=== PATIENT | male | born 1960 | race Caucasian/White ===

== ENCOUNTER 2016-09-10 04:44 | Emergency (ER) | payer SELFPAY ==
[2016-09-10] MEDS ORDERED: Ondansetron 4 MG/2 ML SDV IVPUSH ONE (04:54)
[2016-09-10] MEDS ORDERED: Sodium Chloride 0.9% 1,000 ML IV ONE (04:55)
[2016-09-10] MEDS ORDERED: Ketorolac 30 MG/ML SDV IVPUSH ONE (04:55)
[2016-09-10 05:29] LABS: CHLORIDE,CL 108 mmol/L (98-110); SODIUM,NA 140 mmol/L (136-146)
--- NOTE | 2016-09-10 06:40 | EDM.PDOC ---
ED HPI GENERAL MEDICAL PROBLEM - General Chief Complaint: Abdominal Pain Stated Complaint: STOMACH PAINS Time Seen by Provider: 09/10/16 06:36 - History of Present Illness INITIAL COMMENTS - FREE TEXT/NARRATIVE: HISTORY AND PHYSICAL: History of present illness: Patient's a 56-year-old male presents for an acute right flank pain this started approximately 2 hours prior to arrival with associated nausea he had no vomiting he denies fever chills denies trauma denies history of prior urolithiasis Review of systems: As per history of present illness and below otherwise all systems reviewed and negative. Past medical history: As per history of present illness and as reviewed below otherwise noncontributory. Surgical history: As per history of present illness and as reviewed below otherwise noncontributory. Social history: No reported history of drug or alcohol abuse. Family history: As per history of present illness and as reviewed below otherwise noncontributory. Physical exam: HEENT: Atraumatic, normocephalic, pupils reactive, negative for conjunctival pallor or scleral icterus, mucous membranes moist, throat clear, neck supple, nontender, trachea midline. Lungs: Clear to auscultation, breath sounds equal bilaterally, chest nontender. Heart: S1S2, regular, negative for clicks, rubs, or JVD. Abdomen: Soft, nondistended, nontender. Negative for masses or hepatosplenomegaly. Right-sided costovertebral tenderness. Pelvis: Stable nontender. Genitourinary: Deferred. Rectal: Deferred. Extremities: Atraumatic, negative for cords or calf pain. Neurovascular unremarkable. Neuro: Awake, alert, oriented. Cranial nerves II through XII unremarkable. Cerebellum unremarkable. Motor and sensory unremarkable throughout. Exam nonfocal. Diagnostics: CBC CMP UA CT abdomen and pelvis Therapeutics: Normal saline 1 L bolus Toradol 15 mg IV Zofran 4 mg IV Impression: #1 acute right flank pain Definitive disposition and diagnosis as appropriate pending reevaluation and review of above. Right Lower Abdominal Pain Score (Numeric/FACES): 9 - Related Data Allergies Allergy/AdvReac Type Severity Reaction Status Date / Time No Known Allergies Allergy Verified 09/10/16 04:47 Home Meds: Home Meds . [No Known Home Meds] 09/10/16 [History] Past Medical History HEENT History: Reports: None Cardiovascular History: Reports: None Respiratory History: Reports: None Genitourinary History: Reports: None Musculoskeletal History: Reports: None Neurological History: Reports: None Psychiatric History: Reports: None Dermatologic History: Reports: None - Infectious Disease History Infectious Disease History: Reports: None - Past Surgical History HEENT Surgical History: Reports: None Cardiovascular Surgical History: Reports: None Social & Family History - Tobacco Use Smoking Status *Q: Never Smoker Second Hand Smoke Exposure: No ED ROS GENERAL - Review of Systems Review Of Systems: ROS reveals no pertinent complaints other than HPI. ED EXAM, GENERAL - Physical Exam Exam: See Below (See dictation) Course - Vital Signs Text/Narrative:: Patient is near complete resolution of his discomfort and I discussed with him that likely probability of a recently passed stone patient understands and agrees to followup accordingly as discussed Last Recorded V/S: Last Vital Signs Temp 36.3 C 09/10/16 04:48 Pulse 50 L 09/10/16 04:48 Resp 16 09/10/16 04:48 BP 169/89 H 09/10/16 04:48 Pulse Ox 98 09/10/16 04:48 - Orders/Labs/Meds Orders: Active Orders 24 hr Category Date Time Status Abdomen Pelvis wo Cont [CT] Stat Exams 09/10/16 04:57 Taken URINALYSIS W/MICROSCOPIC [UA W/MICROSCOPIC] [URIN] Stat Lab 09/10/16 06:20 Results Labs: Laboratory Tests 09/10/16 09/10/16 09/10/16 Range/Units 04:51 04:51 06:20 WBC 8.80 (4.0-11.0) K/uL RBC 4.56 (4.50-5.90) M/uL Hgb 14.7 (13.0-17.0) g/dL Hct 42.0 (38.0-50.0) % MCV 92.1 (80.0-98.0) fL MCH 32.2 H (27.0-32.0) pg MCHC 35.0 (31.0-37.0) g/dL RDW Std Deviation 42.6 (28.0-62.0) fl RDW Coeff of Jennifer 13 (11.0-15.0) % Plt Count 207 (150-400) K/uL MPV 12.00 (7.40-12.00) fL Neut % (Auto) 64.7 (48.0-80.0) % Lymph % (Auto) 25.2 (16.0-40.0) % Love % (Auto) 8.4 (0.0-15.0) % Eos % (Auto) 1.5 (0.0-7.0) % Baso % (Auto) 0.2 (0.0-1.5) % Neut # (Auto) 5.7 (1.4-5.7) K/uL Lymph # (Auto) 2.2 (0.6-2.4) K/uL Love # (Auto) 0.7 (0.0-0.8) K/uL Eos # (Auto) 0.1 (0.0-0.7) K/uL Baso # (Auto) 0.0 (0.0-0.1) K/uL Nucleated RBC % 0.0 /100WBC Nucleated RBCs # 0 K/uL Sodium 140 (136-146) mmol/L Potassium 4.1 (3.5-5.1) mmol/L Chloride 108 (98-110) mmol/L Carbon Dioxide 23 (21-31) mmol/L BUN 18 (6.0-23.0) mg/dL Creatinine 1.0 (0.6-1.5) mg/dL Est Cr Clr Drug Dosing TNP Estimated GFR (MDRD) > 60.0 ml/min Glucose 148 H (60-110) mg/dL Calcium 8.9 (8.8-10.8) mg/dL Total Bilirubin 0.8 (0.1-1.5) mg/dL AST 36 (5-40) IU/L ALT 46 (8-54) IU/L Alkaline Phosphatase 61 (40-150) Total Protein 7.0 (6.0-8.0) g/dL Albumin 4.4 (3.5-5.0) g/dL Globulin 2.6 (2.0-3.5) g/dL Albumin/Globulin Ratio 1.7 (1.3-2.8) Urine Color YELLOW Urine Appearance CLEAR Urine pH 6.5 (5.0-8.0) Ur Specific [place] 1.025 (1.001-1.035) Urine Protein NEGATIVE (NEGATIVE) mg/dL Urine Glucose (UA) NEGATIVE (NEGATIVE) mg/dL Urine Ketones NEGATIVE (NEGATIVE) mg/dL Urine Occult Blood LARGE H (NEGATIVE) Urine Nitrite NEGATIVE (NEGATIVE) Urine Bilirubin NEGATIVE (NEGATIVE) Urine Urobilinogen 0.2 (<2.0) EU/dL Ur Leukocyte Esterase NEGATIVE (NEGATIVE) Meds: Medications Discontinued Medications Generic Name Dose Route Start Last Admin Trade Name Kayden PRN Reason Stop Dose Admin Sodium Chloride 1,000 mls @ 999 mls/hr 09/10/16 04:55 09/10/16 05:02 Normal Saline IV 09/10/16 05:55 999 mls/hr .Bolus ONE Administration Ketorolac Tromethamine 15 mg 09/10/16 04:55 09/10/16 05:02 Toradol IVPUSH 09/10/16 04:56 15 mg ONETIME ONE Administration Ondansetron HCl 4 mg 09/10/16 04:54 09/10/16 05:02 Zofran IVPUSH 09/10/16 04:55 4 mg ONETIME ONE Administration Departure - Departure Time of Disposition: 06:38 Disposition: Home, Self-Care 01 Condition: good Clinical Impression: Flank pain, Urolithiasis - Discharge Information Forms: ED Department Discharge Additional Instructions: The following information is given to patients seen in the emergency department who are being discharged to home. This information is to outline your options for follow-up care. We provide all patients seen in our emergency department with a follow-up referral. The need for follow-up, as well as the timing and circumstances, are variable depending upon the specifics of your emergency department visit. If you don't have a primary care physician on staff, we will provide you with a referral. We always advise you to contact your personal physician following an emergency department visit to inform them of the circumstance of the visit and for follow-up with them and/or the need for any referrals to a consulting specialist. The emergency department will also refer you to a specialist when appropriate. This referral assures that you have the opportunity for followup care with a specialist. All of these measure are taken in an effort to provide you with optimal care, which includes your followup. Under all circumstances we always encourage you to contact your private physician who remains a resource for coordinating your care. When calling for followup care, please make the office aware that this follow-up is from your recent emergency room visit. If for any reason you are refused follow-up, please contact the emergency department at and asked to speak to the emergency department charge nurse. [facility] Primary Care [address] [place] [id number] [facility] Specialty Care - Urology [address] [place] [id number] Push fluids followup primary medical doctor and/or urology/clinic above as needed as discussed strain urine return as needed as discussed - My Orders Last 24 Hours: My Active Orders 09/10/16 04:57 Abdomen Pelvis wo Cont [CT] Stat 09/10/16 06:20 URINALYSIS W/MICROSCOPIC [UA W/MICROSCOPIC] [URIN] Stat - Assessment/Plan Last 24 Hours: My Active Orders 09/10/16 04:57 Abdomen Pelvis wo Cont [CT] Stat 09/10/16 06:20 URINALYSIS W/MICROSCOPIC [UA W/MICROSCOPIC] [URIN] Stat
--- NOTE | 2016-09-13 10:49 | CT ---
EXAM DATE: 09/10/16 PATIENT'S AGE: 56 Patient: PUJA JONES Facility: [place], [place] Site . Site : 1960 Study: CT Abdomen/Pelvis [id number]/[id number] 5:47:41 AM Ordering Physician: Doctor Alonso Final Report: INDICATION: Right lower abdominal pain. TECHNIQUE: CT abdomen and pelvis acquired without contrast. COMPARISON: None. FINDINGS: Lower chest: Mild bibasilar atelectasis. No pleural or pericardial effusions. Liver: Fatty change. Spleen: Unremarkable. Pancreas: Unremarkable. Gallbladder and bile ducts: Unremarkable. Kidneys: There is minimal right hydroureteronephrosis with associated periureteral stranding. A discrete obstructing stone is not identified. There is a nonobstructing 3 mm stone in the lower pole of the right kidney. Bilateral unenhanced kidneys are otherwise unremarkable. Adrenal glands: Unremarkable. GI tract: Unremarkable. Appendix is normal. No free air or free fluid. Vascular structures: Unremarkable. Lymph nodes: Unremarkable. Pelvic Organs: Mild prostatomegaly. Bladder is unremarkable. Calcified phleboliths in the pelvis. Bones: Degenerative changes of the spine and pelvis. IMPRESSION: Minimal right hydroureteronephrosis with associated periureteral stranding suggests sequela of recently passed stone. No obstructing stone demonstrated. Nonobstructing right renal stone. Dictated by Xander Long MD @ 09/10/2016 6:01:55 AM Dictated by: Xander Long MD @ 09/10/2016 06:02:18 (Electronic Signature) Report Signed by Proxy. ALEKSANDRA
== END 2016-09-10 07:03 | disposition home or self-care (01) ==
LOC: MW.ED 04:44
DX: N20.9 Urinary calculus, unspecified (principal)
CPT/HCPCS: 74176; 80053; 81001; 85025; 96361; 96374; 96375; 99284; J1885; J2405; J7040

== ENCOUNTER 2017-01-28 20:31 | Emergency (ER) | payer SELFPAY ==
[2017-01-28 20:47] VITALS: BP 157/83
[2017-01-28] MEDS ORDERED: Benzocaine 20% Topical Spray UD MUCMEM ONE (20:49)
[2017-01-28] MEDS ORDERED: Lidocaine 2% Viscous Solution 15 ML Cup PO ONE (20:49)
--- NOTE | 2017-01-28 20:53 | EDM.PDOC ---
ED HPI GENERAL MEDICAL PROBLEM - General Chief Complaint: ENT Problem Stated Complaint: TOOTH PAIN Time Seen by Provider: 01/28/17 20:42 - History of Present Illness INITIAL COMMENTS - FREE TEXT/NARRATIVE: HISTORY AND PHYSICAL: History of present illness: The patient is a 56-year-old male who presents complaints of pain at his left lower jaw area where he says he probably has an impacted wisdom tooth. He has noticed some gum swelling but no facial swelling. He has no sore throat fever chills cough runny nose sore throat or abdominal pain. He does not have a dentist locally. Review of systems: As per history of present illness and below otherwise all systems reviewed and negative. Past medical history: As per history of present illness and as reviewed below otherwise noncontributory. Surgical history: As per history of present illness and as reviewed below otherwise noncontributory. Social history: No reported history of drug or alcohol abuse. Family history: As per history of present illness and as reviewed below otherwise noncontributory. Physical exam: Gen.: Well-developed well-nourished man who is nontoxic and vital signs have been reviewed by me. There is no visible evidence of any jaw or facial swelling. HEENT: Atraumatic, normocephalic, pupils reactive, negative for conjunctival pallor or scleral icterus, mucous membranes moist, throat clear, neck supple, nontender, trachea midline. No cervical adenopathy or nuchal rigidity. There is some slight swelling in the region of where the left lower wisdom tooth might be but there is no fluctuance. There is a dental jasmin and poor dentition seen on the left lower teeth in general. Lungs: Clear to auscultation, breath sounds equal bilaterally, chest nontender. Heart: S1S2, regular rate and rhythm no overt murmurs Abdomen: Soft, nondistended, nontender. NABS Pelvis: Deferred Genitourinary: Deferred. Rectal: Deferred. Extremities: Atraumatic, negative for cords or calf pain. Neurovascular unremarkable. Neuro: Awake, alert, oriented. Gait normal into ER Motor and sensory unremarkable throughout. Exam nonfocal. Diagnostics: [] Therapeutics: Dental balls Impression: Dental pain Definitive disposition and diagnosis as appropriate pending reevaluation and review of above. dental Pain Score (Numeric/FACES): 8 - Related Data Allergies Allergy/AdvReac Type Severity Reaction Status Date / Time No Known Allergies Allergy Verified 01/28/17 20:44 Home Meds: Home Meds . [No Known Home Meds] 09/10/16 [History] Past Medical History HEENT History: Reports: None Cardiovascular History: Reports: None Respiratory History: Reports: None Gastrointestinal History: Reports: None Genitourinary History: Reports: None Musculoskeletal History: Reports: None Neurological History: Reports: None Psychiatric History: Reports: None Endocrine/Metabolic History: Reports: None Hematologic History: Reports: None Immunologic History: Reports: None Oncologic (Cancer) History: Reports: None Dermatologic History: Reports: None - Infectious Disease History Infectious Disease History: Reports: None - Past Surgical History Head Surgeries/Procedures: Reports: None HEENT Surgical History: Reports: None Cardiovascular Surgical History: Reports: None Social & Family History - Family History Family Medical History: Noncontributory - Tobacco Use Smoking Status *Q: Never Smoker Second Hand Smoke Exposure: No - Caffeine Use Caffeine Use: Reports: Coffee - Recreational Drug Use Recreational Drug Use: No ED ROS GENERAL - Review of Systems Review Of Systems: ROS reveals no pertinent complaints other than HPI. ED EXAM, GENERAL - Physical Exam Exam: See Below (See dictation) Course - Vital Signs Last Recorded V/S: Last Vital Signs Temp 36.2 C 01/28/17 20:44 Pulse 49 L 01/28/17 20:44 Resp 18 01/28/17 20:44 BP 157/83 H 01/28/17 20:44 Pulse Ox 98 01/28/17 20:44 - Orders/Labs/Meds Orders: Active Orders 24 hr Category Date Time Status Benzocaine [Hurricaine One 20%] Med 01/28/17 20:49 Once 2 each MUCMEM ONETIME ONE Lidocaine 2% [Xylocaine 2% Viscous] Med 01/28/17 20:49 Once 15 ml PO ONETIME ONE Departure - Departure Time of Disposition: 20:52 Disposition: Home, Self-Care 01 Condition: Good Clinical Impression: Pain, dental - Discharge Information Referrals: PCP,None [Primary Care Provider] - Additional Instructions: The following information is given to patients seen in the emergency department who are being discharged to home. This information is to outline your options for follow-up care. We provide all patients seen in our emergency department with a follow-up referral. The need for follow-up, as well as the timing and circumstances, are variable depending upon the specifics of your emergency department visit. If you don't have a primary care physician on staff, we will provide you with a referral. We always advise you to contact your personal physician following an emergency department visit to inform them of the circumstance of the visit and for follow-up with them and/or the need for any referrals to a consulting specialist. The emergency department will also refer you to a specialist when appropriate. This referral assures that you have the opportunity for followup care with a specialist. All of these measure are taken in an effort to provide you with optimal care, which includes your followup. Under all circumstances we always encourage you to contact your private physician who remains a resource for coordinating your care. When calling for followup care, please make the office aware that this follow-up is from your recent emergency room visit. If for any reason you are refused follow-up, please contact the emergency department at and ask to speak to the emergency department charge nurse. [facility] Primary care- Internal Medicine and Family [address] [id number] Use ice to area if swelling occurs and take medications as prescribed from [facility], amoxicillin, as well as use dental balls as shown in the ER. Use [id number] Tylenol or ibuprofen otherwise for pain. Please call and follow -up with the dental provider in [facility] for further care and evaluation. Return to ER as needed and as discussed - My Orders Last 24 Hours: My Active Orders 01/28/17 20:49 Benzocaine [Hurricaine One 20%] 2 each MUCMEM ONETIME ONE Lidocaine 2% [Xylocaine 2% Viscous] 15 ml PO ONETIME ONE - Assessment/Plan Last 24 Hours: My Active Orders 01/28/17 20:49 Benzocaine [Hurricaine One 20%] 2 each MUCMEM ONETIME ONE Lidocaine 2% [Xylocaine 2% Viscous] 15 ml PO ONETIME ONE
== END 2017-01-28 21:08 | disposition home or self-care (01) ==
LOC: MW.ED 20:31
DX: K08.89 Other specified disorders of teeth and supporting structures (principal)
CPT/HCPCS: 99282; A9270; 99283